=== PATIENT | male | born 1960 | race Caucasian/White ===

== ENCOUNTER 2021-05-17 09:17 | Observation (INO) ==
[2021-05-17 09:57] LABS: Basophils % 0.5 %; Eosinophils # 0.2 K/mcL (0.0-0.6); Eosinophils % 3.4 %; Hemoglobin 15.9 g/dL (12.9-16.9); Immature Granulocytes % 0.5 % (0-4); Lymphocytes # 1.1 K/mcL (0.6-4.6); Lymphocytes % 19.3 %; Mean Corpuscular HGB Conc 35.3 g/dL (31.6-35.5); Mean Corpuscular Hemoglobin 35.8 pg (28.0-33.3); Mean Corpuscular Volume 101.4 fL (83.0-100.0); Mean Platelet Volume 8.5 fL (9.4-12.4); Monocytes # 0.6 K/mcL (0.0-1.3); Monocytes % 10.7 %; Neutrophils # 3.7 K/mcL (1.6-8.9); Platelet Count 191 K/mcL (140-400); Red Blood Count 4.44 M/mcL (4.19-5.50); Red Cell Distribution Width 12.5 % (11.5-14.5); Segmented Neutrophils % 65.6 %; White Blood Count 5.6 K/mcL (4.3-11.1)
[2021-05-17 10:04] LABS: INR 1.2; Prothrombin Time 13.2 Seconds (9.4-12.1)
[2021-05-17 10:07] LABS: Activated Partial Thrombo Time 32.7 Seconds (26.0-36.0)
[2021-05-17 10:17] LABS: VBG Chloride 104 mEq/L (98-107)
[2021-05-17 10:46] LABS: BUN/Creatinine Ratio 7 (6-26); Blood Urea Nitrogen 7 mg/dL (6-20); Carbon Dioxide 31 mEq/L (23-29); Glucose 93 mg/dL (70-105); eGFR For African Americans > 60 (> 60); eGFR For Non-African Americans > 60 (> 60)
[2021-05-17] MEDS ORDERED: *HR* Heparin 5,000 UNIT/ML VIAL IVP ONE (12:08)
[2021-05-17] MEDS: Heparin 25,000UNIT/250ML 1/2NS 25,000 UNIT/250 ML IV.SOLN IVC SCH (12:57)
[2021-05-17] MEDS ORDERED: *HR* LORazepam 2 MG/ML VIAL IVP PRN (17:18)
[2021-05-18] MEDS: hydrOXYzine pamoate 25 MG CAPSULE PO PRN ×2 (00:10→19:35)
[2021-05-18 01:12] LABS: Basophils % 0.7 %; Eosinophils # 0.3 K/mcL (0.0-0.6); Eosinophils % 4.4 %; Hematocrit 40.4 % (37.5-50.1); Hemoglobin 14.4 g/dL (12.9-16.9); Immature Granulocytes % 0.2 % (0-4); Lymphocytes # 1.5 K/mcL (0.6-4.6); Lymphocytes % 25.6 %; Mean Corpuscular HGB Conc 35.6 g/dL (31.6-35.5); Mean Corpuscular Hemoglobin 36.2 pg (28.0-33.3); Mean Corpuscular Volume 101.5 fL (83.0-100.0); Mean Platelet Volume 8.9 fL (9.4-12.4); Monocytes # 0.7 K/mcL (0.0-1.3); Monocytes % 11.6 %; Neutrophils # 3.3 K/mcL (1.6-8.9); Platelet Count 165 K/mcL (140-400); Red Blood Count 3.98 M/mcL (4.19-5.50); Red Cell Distribution Width 12.4 % (11.5-14.5); Segmented Neutrophils % 57.5 %; White Blood Count 5.7 K/mcL (4.3-11.1)
[2021-05-18 01:41] LABS: Alanine Aminotransferase 33 Units/L (7-52); Albumin 3.4 g/dL (3.5-5.7); Alkaline Phosphatase 72 Units/L (34-104); Aspartate Amino Transferase 30 Units/L (13-39); BUN/Creatinine Ratio 8 (6-26); Blood Urea Nitrogen 9 mg/dL (6-20); Calcium 8.6 mg/dL (8.6-10.3); Carbon Dioxide 30 mEq/L (23-29); Chloride 101 mEq/L (98-107); Globulin 3.5 g/dL (2.4-3.5); Glucose 96 mg/dL (70-105); Osmolality,Calculated 283 (280-300); Potassium 3.8 mEq/L (3.5-5.1); Sodium 137 mEq/L (136-145); Total Protein 6.9 g/dL (6.4-8.9); eGFR For African Americans > 60 (> 60); eGFR For Non-African Americans > 60 (> 60)
[2021-05-18] MEDS: Heparin 25,000UNIT/250ML 1/2NS 25,000 UNIT/250 ML IV.SOLN IVC SCH ×2 (06:10→22:54)
[2021-05-18] MEDS: Folic Acid 1 MG TABLET PO SCH (09:04)
[2021-05-18] MEDS: Thiamine (B-1) 100 MG TABLET PO SCH (09:05)
[2021-05-18] MEDS: Vitamin B Complex/Vit C/Vit E 1 EACH TABLET PO SCH (09:05)
[2021-05-18] MEDS: Aspirin Enteric Coated 325 MG Tablet PO SCH (09:07)
[2021-05-19 02:33] LABS: Basophils % 0.8 %; Eosinophils # 0.3 K/mcL (0.0-0.6); Eosinophils % 5.5 %; Hematocrit 40.6 % (37.5-50.1); Hemoglobin 14.7 g/dL (12.9-16.9); Immature Granulocytes % 0.4 % (0-4); Lymphocytes # 1.4 K/mcL (0.6-4.6); Lymphocytes % 28.4 %; Mean Corpuscular HGB Conc 36.2 g/dL (31.6-35.5); Mean Corpuscular Volume 99.5 fL (83.0-100.0); Mean Platelet Volume 8.7 fL (9.4-12.4); Monocytes # 0.6 K/mcL (0.0-1.3); Monocytes % 11.8 %; Neutrophils # 2.6 K/mcL (1.6-8.9); Platelet Count 182 K/mcL (140-400); Red Blood Count 4.08 M/mcL (4.19-5.50); Red Cell Distribution Width 12.3 % (11.5-14.5); Segmented Neutrophils % 53.1 %; White Blood Count 4.9 K/mcL (4.3-11.1)
[2021-05-19 05:43] LABS: BUN/Creatinine Ratio 9 (6-26); Blood Urea Nitrogen 8 mg/dL (6-20); Calcium 8.5 mg/dL (8.6-10.3); Carbon Dioxide 27 mEq/L (23-29); Chloride 103 mEq/L (98-107); Glucose 101 mg/dL (70-105); Osmolality,Calculated 282 (280-300); Potassium 3.7 mEq/L (3.5-5.1); Sodium 137 mEq/L (136-145); eGFR For African Americans > 60 (> 60); eGFR For Non-African Americans > 60 (> 60)
[2021-05-19] MEDS: Thiamine (B-1) 100 MG TABLET PO SCH (08:29)
[2021-05-19] MEDS: Aspirin Enteric Coated 325 MG Tablet PO SCH (08:29)
[2021-05-19] MEDS: Folic Acid 1 MG TABLET PO SCH (08:29)
[2021-05-19] MEDS: Vitamin B Complex/Vit C/Vit E 1 EACH TABLET PO SCH (08:29)
[2021-05-19 11:52] VITALS: BP 131/83; PULSE 67; RESP 18; TEMP 98.1; O2SAT 97
[2021-05-19] MEDS ORDERED: Apixaban 5 MG TABLET PO SCH (13:00)
== END 2021-05-19 17:15 | disposition home or self-care (01) ==
LOC: INPPIK 09:17 → EMEROOPIK 09:17 → INPPIK 20:30
PROVIDERS: ADMIT Internal Medicine; ATTEND Internal Medicine